=== PATIENT | female | born 1935 | race Caucasian/White ===

== ENCOUNTER 2020-06-05 13:25 | Emergency (ER) | payer MEDICARE ==
[2020-06-05 14:49] LABS: BASOPHIL 0.5 % (0-2); EOSINOPHIL 1.1 % (0-7); HGB 14.4 g/dl (12.5-16.0); LYMPHOCYTE 26.5 % (15-48); MCH 29.8 pg (25.0-31.0); MONOCYTE 7.3 % (0-12); MPV 10.2 fL (6.0-9.5); NEUTROPHIL 63.8 % (41-80); NRBC 0; PLT 204 K/uL (150-400); RBC 4.84 M/uL (4.20-5.40); RDW 13.3 % (11.5-14.0); WBC 6.5 K/uL (4.0-10.5)
[2020-06-05 14:49] LABS: BILIRUBIN NEGATIVE (NEGATIVE); BLOOD NEGATIVE Ery/uL (NEGATIVE); CLARITY CLEAR (CLEAR); COLOR YELLOW (YELLOW); GLUCOSE (U) NORMAL (NORMAL); LEUKOCYTES NEGATIVE Leu/uL (NEGATIVE); NITRITE NEGATIVE (NEGATIVE); PROTEIN NEGATIVE (NEGATIVE); UROBILINOGEN 0.2 mg/dL (0.2-1.0)
[2020-06-05 16:20] LABS: ALBUMIN 3.6 g/dL (3.4-5.0); BILIRUBIN - TOTAL 0.6 mg/dL (0.2-1.0); BUN/CREAT RATIO (CALC) 18.1 RATIO; CREATININE 0.83 mg/dL (0.51-0.95); GLOBULIN (CALCULATION) 3.5 g/dL; POTASSIUM 4.1 mmol/L (3.5-5.1); TOTAL PROTEIN 7.1 g/dL (6.4-8.2)
== END 2020-06-05 16:29 | disposition home or self-care (01) ==
LOC: FER 13:25
PROVIDERS: Emergency Medicine
DX: R47.9 Unspecified speech disturbances (principal); I10 Essential (primary) hypertension
CPT/HCPCS: 36415; 70450; 80053; 81003; 85025; 93005